=== PATIENT | male | born 1995 | race Hispanic/Latino ===

== ENCOUNTER 2020-08-10 12:11 | Emergency (ER) | payer BC, SELFPAY ==
--- NOTE | 2020-08-10 13:57 | RAD REPORT ---
EXAM DESCRIPTION: RAD - Knee Left 3 View - 08/10/2020 1:43 pm CLINICAL HISTORY: PAIN Pain and swelling COMPARISON: No comparisons FINDINGS: Soft tissue swelling is seen anterior to the patellar tendon. No fracture, dislocation or joint effusion.
--- NOTE | 2020-08-10 14:46 | ER ---
Nurse's Notes [facility] Name: Quan Meyres Age: 25 yrs Sex: Male : 1995 Arrival Date: 08/10/2020 Time: 12:18 Bed 5 Private MD: Diagnosis: Pain in left knee Presentation: 08/10 12:40 Chief complaint: Patient states: L knee pain for 4 days. Slightly swollen, OTC meds not ll1 helping. No trauma or falls. Coronavirus screen: Client denies travel out of the [place] in the last 14 days. At this time, the client does not indicate any symptoms associated with coronavirus-19. Ebola Screen: Patient denies travel to an Ebola-affected area in the 21 days before illness onset. Initial Sepsis Screen: Does the patient meet any 2 criteria? No. Patient's initial sepsis screen is negative. Does the patient have a suspected source of infection? Yes: Bone or joint infection. Risk Assessment: Do you want to hurt yourself or someone else? Patient reports no desire to harm self or others. Onset of symptoms was August 07, 2020. 12:40 Method Of Arrival: Ambulatory ll1 12:40 Acuity: SANJANA 4 ll1 Historical: - Allergies: 12:42 No Known Allergies; ll1 - PMHx: 12:42 None; ll1 - PSHx: 12:42 R hand 5th digit SX; ll1 - Immunization history:: Flu vaccine is not up to date. - Social history:: Smoking status: Patient reports the use of cigarette tobacco products, denies chronic smoking, but will smoke occasionally. Vital Signs: 12:40 BP 141 / 90; Pulse 63; Resp 16; Temp 98.5; Pulse Ox 99% ; Weight 58.97 kg; Height 5 ft. ll1 7 in. (170.18 cm); Pain 7/10; 12:40 Body Mass Index 20.36 (58.97 kg, 170.18 cm) ll1 ED Course: 12:18 Patient arrived in ED. wm 12:42 Triage completed. ll1 12:42 Arm band placed on. ll1 14:19 Mariah Cline FNP-C [facility]. kb 14:19 Placido Dubon MD is Attending Physician. kb 14:33 Nils Randle, RN is Primary Nurse. bp 14:35 Enrique wrap to left knee. bp Administered Medications: 14:35 Drug: Ibuprofen 400 mg Route: PO; bp Outcome: 14:46 Discharge ordered by . kb 15:27 Patient left the ED. iw Signatures: Mariah Cline, MOWER MECHANIC-C MOWER MECHANIC-Ckb Juju Blanco RN RN iw Nils Randle RN RN bp Galina Blair RN RN [facility] Ophelia Diaz Corrections: (The following items were deleted from the chart) 14:52 14:52 Enrique wrap to left knee bp bp
--- NOTE | 2020-08-10 14:46 | EDPHYS ---
Physician Documentation [facility] Name: Quan Meyers Age: 25 yrs Sex: Male : 1995 Arrival Date: 08/10/2020 Time: 12:18 Bed 5 Private MD: ED Physician Placido Dubon HPI: 08/10 14:43 This 25 yrs old Male presents to ER via Ambulatory with complaints of Knee kb Pain. 14:43 The patient presents with pain, that is acute, swelling, tenderness. The complaints kb affect the left knee. Context: The problem was sustained at work, resulted from an unknown cause, the patient can fully bear weight, the patient is able to ambulate. Onset: The symptoms/episode began/occurred 4 day(s) ago. Modifying factors: The symptoms are alleviated by nothing. the symptoms are aggravated by nothing. Associated signs and symptoms: Pertinent positives: swelling, Pertinent negatives calf tenderness, fever, nausea, numbness, rash, tingling, vomiting, warmth, weakness. Treatment prior to arrival includes: no previous treatment. Severity of symptoms: At their worst the symptoms were moderate, in the emergency department the symptoms have improved, moderately. The patient has not experienced similar symptoms in the past. The patient has not recently seen a physician. Pt states he started having pain and swelling to left knee 4 days ago. Denies injury or trauma, states he works on his knees a lot. Reports difficulty walking for the first 2 days, but has been walking fine since then. Came to just have it checked out today before returning to work. Historical: - Allergies: 12:42 No Known Allergies; ll1 - PMHx: 12:42 None; ll1 - PSHx: 12:42 R hand 5th digit SX; ll1 - Immunization history:: Flu vaccine is not up to date. - Social history:: Smoking status: Patient reports the use of cigarette tobacco products, denies chronic smoking, but will smoke occasionally. ROS: 14:35 Constitutional: Negative for fever, chills, and weight loss, Skin: Negative for injury, kb rash, and discoloration, Neuro: Negative for headache, weakness, numbness, tingling, and seizure. 14:35 MS/extremity: Positive for pain, swelling, tenderness, of the left knee. Exam: 14:42 Constitutional: This is a well developed, well nourished patient who is awake, alert, kb and in no acute distress. Head/Face: Normocephalic, atraumatic. ENT: Moist Mucous membranes Respiratory: Respirations even and unlabored. No increased work of breathing, no retractions or nasal flaring. Skin: Warm, dry with normal turgor. Normal color. Neuro: Awake and alert, GCS 15, oriented to person, place, time, and situation. Moves all extremities. Normal gait. Psych: Awake, alert, with orientation to person, place and time. Behavior, mood, and affect are within normal limits. 14:42 Musculoskeletal/extremity: Extremities: grossly normal except: noted in the left knee: pain, swelling, tenderness, ROM: no acute changes, Circulation is intact in all extremities. Sensation intact. Weight bearing: able to fully bear weight. Vital Signs: 12:40 BP 141 / 90; Pulse 63; Resp 16; Temp 98.5; Pulse Ox 99% ; Weight 58.97 kg; Height 5 ft. ll1 7 in. (170.18 cm); Pain 7/10; 12:40 Body Mass Index 20.36 (58.97 kg, 170.18 cm) ll1 MDM: 14:21 Patient medically screened. kb 14:37 Data reviewed: vital signs, nurses notes. Data interpreted: Pulse oximetry: on room air kb is 99 %. Interpretation: normal. Counseling: I had a detailed discussion with the patient and/or guardian regarding: the historical points, exam findings, and any diagnostic results supporting the discharge/admit diagnosis, radiology results, the need for outpatient follow up, a orthopedic surgeon, to return to the emergency department if symptoms worsen or persist or if there are any questions or concerns that arise at home. ED course: Pt educated on radiology findings. Educated on RICE and follow up with orthopedist for persistent symptoms. . 08/10 13:10 Order name: Knee Left 3 View XRAY kb 08/10 13:58 Order name: RAD; Complete Time: 14:21 EDMS 08/10 14:25 Order name: Enrique Wrap; Complete Time: 14:52 kb Administered Medications: 14:35 Drug: Ibuprofen 400 mg Route: PO; bp Disposition: 08/10/20 14:46 Discharged to Home. Impression: Pain in left knee. - Condition is Stable. - Discharge Instructions: Knee Pain, [id number]. - Medication Reconciliation Form, Thank You Letter, Antibiotic Education, Prescription Opioid Use, Work release form form. - Follow up: Emergency Department; When: As needed; Reason: Worsening of condition. Follow up: Private Physician; When: 2 - 3 days; Reason: Recheck today's complaints, Continuance of care, Re-evaluation by your physician. Signatures: Dispatcher [employer] [facility] Mariah Cline, WARP SCOURING VAT TENDER-C WARP SCOURING VAT TENDER-Juju Martinez, TEENA RN iw Nils Randle RN RN bp Galina Blair RN RN ll1 Corrections: (The following items were deleted from the chart) 15:27 14:46 08/10/2020 14:46 Discharged to Home. Impression: Pain in left knee. Condition is iw Stable. Forms are Medication Reconciliation Form, Thank You Letter, Antibiotic Education, Prescription Opioid Use. Follow up: Emergency Department; When: As needed; Reason: Worsening of condition. Follow up: Private Physician; When: 2 - 3 days; Reason: Recheck today's complaints, Continuance of care, Re-evaluation by your physician. kb
[2020-08-10] MEDS ORDERED: IBUPROFEN 400 MG TAB ONE (15:03)
[2020-08-10 15:31] VITALS: BP 141/90; TEMP 98.5; O2SAT 99
== END 2020-08-10 15:27 | disposition home or self-care (01) ==
LOC: ER 12:11
DX: M25.562 Pain in left knee (principal); F17.210 Nicotine dependence, cigarettes, uncomplicated
CPT/HCPCS: 99283